=== PATIENT | female | born 1945 | race Caucasian/White ===

== ENCOUNTER 2017-12-15 12:13 | Emergency (ER) | payer MEDICARE, BC ==
[2017-12-15] MEDS ORDERED: LORazepam 2 MG/ML SDV IVPUSH ONE (12:26)
[2017-12-15] MEDS ORDERED: Ondansetron 4 MG/2 ML SDV IVPUSH ONE (12:27)
[2017-12-15] MEDS ORDERED: fentaNYL 100 MCG/2 ML SDV IVPUSH ONE (12:27)
[2017-12-15 13:01] LABS: CHLORIDE,CL 103 mmol/L (98-107); SODIUM,NA 138 mmol/L (136-145)
--- NOTE | 2017-12-15 13:58 | EDM.PDOC ---
ED HPI GENERAL MEDICAL PROBLEM - General Chief Complaint: Upper Extremity Injury/Pain Stated Complaint: fall with left shoulder dislocation Time Seen by Provider: 12/15/17 12:50 Source of Information: Reports: Patient History Limitations: Reports: No Limitations - History of Present Illness INITIAL COMMENTS - FREE TEXT/NARRATIVE: Patient comes to ER from [facility] with left shoulder dislocation. She was hanging onto a door when she tripped over a bucket. Tried to steady herself to keep from falling and dislocated the shoulder of the arm gripping the door. No numbness/tingling of left arm/hands. Pulses intact. Denies other injuries. Has not had shoulder dislocation before. No other complaints/injuries/changes. Left Shoulder Pain Score (Numeric/FACES): 8 - Related Data Allergies Allergy/AdvReac Type Severity Reaction Status Date / Time Penicillins Allergy Rash Verified 12/15/17 12:25 Home Meds: Home Meds Levothyroxine Sodium [Synthroid] 100 mcg PO DAILY 12/15/17 [History] Lisinopril 10 mg PO DAILY 12/15/17 [History] Pantoprazole Sodium 40 mg PO DAILY PRN 12/15/17 [History] Potassium Chloride [Klor-Con 8] 8 meq PO DAILY #30 tab.er 12/15/17 [Rx] amLODIPine Besylate [Amlodipine Besylate] 10 mg PO DAILY 12/15/17 [History] atorvaSTATin Calcium [Atorvastatin Calcium] 10 mg PO BEDTIME 12/15/17 [History] traZODone HCl [Trazodone HCl] 100 mg PO BEDTIME 12/15/17 [History] Past Medical History Cardiovascular History: Reports: High Cholesterol, Hypertension Gastrointestinal History: Reports: GERD Psychiatric History: Reports: Anxiety Endocrine/Metabolic History: Reports: Hypothyroidism Social & Family History - Family History Family Medical History: Noncontributory Review of Systems - Review of Systems Review Of Systems: ROS reveals no pertinent complaints other than HPI. ED EXAM, GENERAL - Physical Exam Exam: See Below Exam Limited By: No Limitations General Appearance: Alert, WD/WN, Anxious, Mild Distress Eye Exam: Bilateral Eye: EOMI, PERRL Throat/Mouth: Normal Lips, Normal Voice, No Airway Compromise Head: Atraumatic, Normocephalic Neck: No: Supple, Non-Tender Respiratory/Chest: No Respiratory Distress, Lungs Clear, Normal Breath Sounds, No Accessory Muscle Use Cardiovascular: Regular Rate, Rhythm, No Murmur Peripheral Pulses: 2+: Radial (L), Radial (R) GI/Abdominal: Soft, Non-Tender (Female) Exam: Deferred Rectal (Female) Exam: Deferred Extremities: Normal Capillary Refill, Limited Range of Motion (left shoulder), Other (Left shoulder deformity suggesting anterior dislocation. NVI. ) Neurological: Alert, Oriented, Normal Cognition, Normal Gait Psychiatric: Anxious Skin Exam: Warm, Dry, Intact, Normal Color ED TRAUMA EXTREMITY PROCEDURES - Joint Reduction Site: Shoulder (L) Sedation: Conscious Sedation Pre-Procedure NV Status: Normal Post-Procedure NV Status: Normal Technique: Other (Rober maneuver) Number of Attempts: 1 Post-Reduction Imaging: Completely Reduced, No Fracture Seen Joint Reduction Complications: No Progress/Comments: Shoulder immobilizer applied Course - Vital Signs Last Recorded V/S: Last Vital Signs Temp 36.8 C 12/15/17 12:43 Pulse 58 L 12/15/17 12:43 Resp 18 12/15/17 12:43 BP 150/59 H 12/15/17 12:43 Pulse Ox 100 12/15/17 12:43 - Orders/Labs/Meds Orders: Active Orders 24 hr Category Date Time Status Shoulder Comp Lt [CR] Stat Exams 12/15/17 13:14 Ordered Labs: Laboratory Tests 12/15/17 12/15/17 Range/Units 12:43 12:43 WBC 12.7 H (4.0-10.2) K/uL RBC 4.46 (3.77-5.09) M/uL Hgb 13.4 (11.7-15.5) g/dL Hct 39.5 (34.0-46.0) % MCV 88.6 (84.0-98.0) fL MCH 30.0 (28.2-33.3) pg MCHC 33.9 (31.7-36.0) g/dL RDW 12.5 (11.2-14.1) % Plt Count 256 (150-350) K/uL Neut % (Auto) 77.3 (45.0-80.0) % Lymph % (Auto) 14.2 (10.0-50.0) % Cochran % (Auto) 7.2 (2.0-14.0) % Eos % (Auto) 1.0 (0.0-5.0) % Baso % (Auto) 0.3 (0.0-2.0) % Neut # (Auto) 9.83 H (1.40-7.00) K/uL Lymph # (Auto) 1.80 (0.50-3.50) K/uL Cochran # (Auto) 0.92 (0.00-1.00) K/uL Eos # (Auto) 0.13 (0.00-0.50) K/uL Baso # (Auto) 0.04 (0.00-0.20) K/uL Sodium 138 (136-145) mmol/L Potassium 3.4 L (3.5-5.1) mmol/L Chloride 103 (98-107) mmol/L Carbon Dioxide 25.4 (21.0-32.0) mmol/L BUN 11 (7-18) mg/dL Creatinine 0.73 (0.51-1.17) mg/dL Est Cr Clr Drug Dosing 67.13 mL/min Estimated GFR (MDRD) > 60 mL/min Glucose 170 H (74-106) mg/dL Calcium 8.9 (8.5-10.1) mg/dL Total Bilirubin 0.3 (0.2-1.0) mg/dL AST 22 (15-37) U/L ALT 28 (12-78) U/L Alkaline Phosphatase 78 (46-116) IU/L Total Protein 8.1 (6.4-8.2) g/dL Albumin 3.9 (3.4-5.0) g/dL Meds: Medications Discontinued Medications Generic Name Dose Route Start Last Admin Trade Name Freq PRN Reason Stop Dose Admin Fentanyl 100 mcg 12/15/17 12:27 12/15/17 12:50 Sublimaze IVPUSH 12/15/17 12:28 100 mcg ONETIME ONE Administration Lorazepam 1 mg 12/15/17 12:26 12/15/17 12:45 Ativan IVPUSH 12/15/17 12:27 1 mg ONETIME ONE Administration Ondansetron HCl 4 mg 12/15/17 12:27 12/15/17 12:44 Zofran IVPUSH 12/15/17 12:28 4 mg ONETIME ONE Administration - Radiology Interpretation Free Text/Narrative:: Xray from [facility] confirmed anterior dislocation. Post-reduction attempt films indicate complete reduction of dislocation. - Re-Assessments/Exams Free Text/Narrative Re-Assessment/Exam: 12/15/17 14:18 Rober maneuver along with conscious sedation utilized for reduction attempt. This appeared to be successful based on physical exam and xrays. Immobilizer applied. Anticipated course of healing discussed with patient. She is to follow up with her primary clinic in [place] this week. Patient discharged after observation period post-sedation while the effects of medications were allowed to reduce. She was discharged once she was alert and oxygenating well on room air. Departure - Departure Time of Disposition: 13:55 Disposition: Home, Self-Care 01 Condition: Good Clinical Impression: Anterior shoulder dislocation Qualifiers: Encounter type: initial encounter Laterality: left Qualified Code(s): S43.015A - Anterior dislocation of left humerus, initial encounter - Discharge Information Prescriptions: Potassium Chloride [Klor-Con 8] 8 meq PO DAILY #30 tab.er Instructions: Shoulder Dislocation, [id number] Referrals: Yi Hanks PA-C [Primary Care Provider] - Forms: ED Department Discharge Additional Instructions: Follow up with your primary provider this week for recheck and referral to PT if needed. Tylenol/ice for pain. Wear immobilizer ALL OF THE TIME except for showering. Otherwise you are at high risk for dislocating it again. Expect to wear the immobilizer for approximately 4 weeks. Recommend potassium recheck in 3-4 weeks. Follow up otherwise as needed. - My Orders Last 24 Hours: My Active Orders 12/15/17 13:14 Shoulder Comp Lt [CR] Stat - Assessment/Plan Last 24 Hours: My Active Orders 12/15/17 13:14 Shoulder Comp Lt [CR] Stat
== END 2017-12-15 14:30 | disposition home or self-care (01) ==
LOC: LL.ED 12:13
DX: S43.015A Anterior dislocation of left humerus, initial encounter (principal); I10 Essential (primary) hypertension; E03.9 Hypothyroidism, unspecified; K21.9 Gastro-esophageal reflux disease without esophagitis; Z88.0 Allergy status to penicillin; Z79.899 Other long term (current) drug therapy; X50.9XXA Other and unspecified overexertion or strenuous movements or postures, initial encounter
CPT/HCPCS: 23650; 36415; 73030-LT; 80053; 85025; 96374; 96375; 99283; 99284; J2060; J2405; J3010

== ENCOUNTER 2021-08-02 10:12 | Day surgery (SDC) | payer MEDICARE, BC ==
[~2021-08-02 10:12] MED LIST: Midazolam 1 MG/ML 2 ML SDV ONE; Propofol 200 MG/20 ML SDV ONE
[2021-08-02] MEDS ORDERED: Sodium Chloride 0.9% 10 ML Syringe FLUSH SCH (11:30)
[2021-08-02] MEDS ORDERED: Lactated Ringers 1,000 ML IV SCH (11:30)
[2021-08-02] MEDS ORDERED: Midazolam 1 MG/ML 2 ML SDV ONE (11:55)
[2021-08-02] MEDS ORDERED: Propofol 200 MG/20 ML SDV ONE (11:55)
== END 2021-08-02 13:00 | disposition home or self-care (01) ==
LOC: LL.SDS 10:12
PROVIDERS: ATTEND Surgery
DX: K57.30 Diverticulosis of large intestine without perforation or abscess without bleeding (principal); K59.00 Constipation, unspecified; R01.1 Cardiac murmur, unspecified; E03.9 Hypothyroidism, unspecified; I10 Essential (primary) hypertension; E66.9 Obesity, unspecified; Z79.899 Other long term (current) drug therapy; Z88.0 Allergy status to penicillin; Z68.30 Body mass index [BMI] 30.0-30.9, adult
CPT/HCPCS: J2250; J2704; J7120